=== PATIENT | female | born 1940 | race Two or more races ===

== ENCOUNTER 2019-03-18 22:21 | Inpatient (IN) | payer MEDICARE, OTHER ==
[~2019-03-18] VITALS: Ht 154.9 cm; Wt 48.5 kg
[~2019-03-18 22:21] MED LIST: DIABETIC MEDS; [UNRECOGNIZED DRUG - REMARK]
[2019-03-18] MEDS ORDERED: AMLO10TA7 PO (22:30)
[2019-03-18] MEDS ORDERED: PRAV80TA21 PO (22:30)
[2019-03-18] MEDS ORDERED: LISI-662 PO (22:32)
[2019-03-18] MEDS ORDERED: ASPI-1182 PO (22:32)
[2019-03-18] MEDS ORDERED: METO-558 PO (22:32)
[2019-03-18] MEDS ORDERED: METF-960 PO (22:32)
[2019-03-18 22:41] LABS: GLUCOSE,POINT OF CARE 139 MG/DL (70-110)
[2019-03-18 22:59] LABS: BASOPHILS % (AUTO) 0.1 % (0.0-2.0); HEMATOCRIT 41.8 % (36-46); HEMOGLOBIN 13.8 g/dL (12.0-16.0); LYMPHOCYTES # (AUTO) 2.2 K/uL (1.0-4.8); LYMPHOCYTES % (AUTO) 10.4 % (22.0-44.0); MEAN CORPUSCULAR HEMOGLOBIN 29.9 pg (26.0-34.0); MEAN CORPUSCULAR VOLUME 91 fL (80-100); MONOCYTES # (AUTO) 0.7 K/uL (0.1-1.0); MONOCYTES % (AUTO) 3.3 % (2.0-9.0); NEUTROPHILS # (AUTO) 18.2 K/uL (1.8-7.7); PLATELET COUNT (AUTO) 641 K/uL (150-450); RED CELL DISTRIBUTION WIDTH 14.6 % (11.5-14.5)
[2019-03-18 23:07] LABS: ANION GAP 11 mmol/L (8-16); CALCIUM, TOTAL 10.7 mg/dL (8.8-10.5); CARBON DIOXIDE 28 mmol/L (22-29); CHLORIDE 99 mmol/L (98-107); CREATININE 0.86 mg/dL (0.60-1.30); GLUCOSE,RANDOM 155 mg/dL (70-110); SODIUM SERUM 138 mmol/L (136-145); UREA NITROGEN, BLOOD 16 mg/dL (7-18)
[2019-03-18 23:11] LABS: GLOMERULAR FILTR. RATE CALC > 60 mL/min (>60)
[2019-03-18 23:13] LABS: ALANINE AMINOTRANSFERASE 29 U/L (12-78); ALBUMIN 3.2 g/dL (3.4-5.0); ALKALINE PHOSPHATASE 156 U/L (46-116); ASPARTATE AMINOTRANSFERASE 30 U/L (15-37); BILIRUBIN,TOTAL 0.8 mg/dL (0.1-1.0); LIPASE 84 U/L (73-393); TOTAL PROTEIN, SERUM 7.8 g/dL (6.4-8.2)
[2019-03-18 23:15] LABS: NEUTROPHILS % (AUTO) 85.2 % (40.0-70.0)
[2019-03-18] MEDS ORDERED: ONDANSETRON HCL 4 MG/2 ML VIAL IVP PRN (23:45)
[2019-03-18] MEDS ORDERED: 0.9% SODIUM CHLORIDE 10 ML SYRINGE IVP PRN (23:45)
[2019-03-18] MEDS ORDERED: ACETAMINOPHEN 325 MG TABLET PO PRN (23:45)
[2019-03-18] MEDS ORDERED: ONDANSETRON HCL 4 MG/2 ML VIAL IVP ONE (23:45)
[2019-03-18] MEDS ORDERED: HYDROmorphone 2 MG/ML SYRINGE IVP ONE (23:45)
[2019-03-18] MEDS ORDERED: SODIUM CHLORIDE 0.9% 1,000 ML IV ONE (23:45)
[2019-03-19] MEDS ORDERED: CefTRIAXone 1 GM/DEXTROSE 50 ML IV ONE (00:15)
[2019-03-19] MEDS ORDERED: 0.9% SODIUM CHLORIDE 10 ML SYRINGE IVP PRN (01:00)
[2019-03-19] MEDS ORDERED: ONDANSETRON HCL 4 MG/2 ML VIAL IVP PRN (01:00)
[2019-03-19] MEDS ORDERED: MORPHINE SULFATE 2 MG/ML SYRINGE IVP PRN ×2 (01:00→13:00)
[2019-03-19] MEDS ORDERED: DEXTROSE 50%-WATER 25 GM/50 ML SYRINGE IVP PRN (01:00)
[2019-03-19] MEDS ORDERED: INSULIN LISPRO 100 UNITS/ML SQ PRN (01:00)
[2019-03-19] MEDS ORDERED: VANCOMYCIN HCL 1.25 GM in DEXTROSE 5%-WATER 250 ML IV ONE (01:30)
[2019-03-19 03:40] VITALS: BP 142/72
[2019-03-19 07:02] LABS: GLUCOMETER DEV NAME(LOC) 5S.1; GLUCOSE,POINT OF CARE 213 MG/DL (70-110)
[2019-03-19 07:41] VITALS: BP 110/58
[2019-03-19] MEDS: PANTOPRAZOLE SODIUM 40 MG/VIAL IVP SCH (08:50)
[2019-03-19] MEDS: PIPERACILLIN/TAZO 3.375 GM/D5W 50 ML IV SCH ×3 (08:50→20:51)
[2019-03-19 10:18] LABS: BASOPHILS % (AUTO) 0.3 % (0.0-2.0); EOSINOPHILS % (AUTO) 0.3 % (1.0-6.0); HEMATOCRIT 36.1 % (36-46); HEMOGLOBIN 12.1 g/dL (12.0-16.0); LYMPHOCYTES # (AUTO) 2.2 K/uL (1.0-4.8); LYMPHOCYTES % (AUTO) 19.3 % (22.0-44.0); MEAN CORPUSCULAR HEMOGLOBIN 30.2 pg (26.0-34.0); MEAN CORPUSCULAR HGB CONC 33.6 G/dL (31.0-37.0); MEAN CORPUSCULAR VOLUME 90 fL (80-100); MONOCYTES # (AUTO) 0.4 K/uL (0.1-1.0); MONOCYTES % (AUTO) 3.3 % (2.0-9.0); NEUTROPHILS # (AUTO) 8.6 K/uL (1.8-7.7); NEUTROPHILS % (AUTO) 76.8 % (40.0-70.0); PLATELET COUNT (AUTO) 580 K/uL (150-450); RED BLOOD CELL COUNT(AUTO) 4.02 MIL/uL (4.00-5.20); RED CELL DISTRIBUTION WIDTH 14.5 % (11.5-14.5)
[2019-03-19 10:26] LABS: CREATININE 0.93 mg/dL (0.60-1.30); POTASSIUM 4.4 mmol/L (3.5-5.1)
[2019-03-19 10:27] LABS: CALCIUM, TOTAL 9.8 mg/dL (8.8-10.5)
[2019-03-19] MEDS ORDERED: AMLO2.5T29 PO (11:19)
[2019-03-19] MEDS ORDERED: INSREG SQ (11:28)
[2019-03-19] MEDS ORDERED: INSNPH SQ (11:28)
[2019-03-19] MEDS ORDERED: METO50 PO (11:28)
[2019-03-19 11:40] VITALS: BP 116/60
[2019-03-19 13:26] LABS: GLUCOMETER DEV NAME(LOC) 5S.1; GLUCOSE,POINT OF CARE 95 MG/DL (70-110)
[2019-03-19 13:50] LABS: GLUCOSE, URINE (UA) NEGATIVE (NEGATIVE); KETONES,URINE TRACE mg/dL (NEGATIVE); LEUKOCYTE ESTERASE ,URINE NEGATIVE (NEGATIVE); NITRATE,URINE NEGATIVE (NEGATIVE); OCCULT BLOOD,URINE NEGATIVE (NEGATIVE); PROTEIN,URINE POS 1+ (NEGATIVE); UROBILINOGEN,URINE 0.2 mg/dL (<=1.0)
[2019-03-19 14:00] LABS: BILIRUBIN,URINE PRELIM. POSITIVE (NEGATIVE)
[2019-03-19 14:02] LABS: APPEARANCE,URINE SLIGHTLY CLOUDY (CLEAR)
[2019-03-19 14:03] LABS: BACTERIA,URINE None Seen /HPF (None Seen); RBC,URINE 0-2 /HPF (0-2); SQUAMOUS EPITHELIAL CELL,UR Many /LPF (None Seen); WBC,URINE 0-2 /HPF (0-5)
[2019-03-19 15:25] VITALS: BP 122/55
[2019-03-19] MEDS ORDERED: VANCOMYCIN HCL 500 MG in DEXTROSE 5%-WATER 100 ML IV SCH (19:00)
[2019-03-19 19:33] VITALS: BP 128/48
[2019-03-19] MEDS ORDERED: PNEUMOCOCCAL VACCINE POLYVALENT 0.5 ML VIAL [PPSV23] IM ONE (20:15)
[2019-03-19 23:46] VITALS: BP 142/58
[2019-03-20] MEDS: PIPERACILLIN/TAZO 3.375 GM/D5W 50 ML IV SCH ×2 (02:45→09:05)
[2019-03-20 04:29] VITALS: BP 133/50
[2019-03-20 07:56] VITALS: BP 144/62
[2019-03-20] MEDS ORDERED: ASPIRIN 81 MG CHEWABLE TABLET PO SCH (09:00)
[2019-03-20] MEDS: PANTOPRAZOLE SODIUM 40 MG/VIAL IVP SCH (09:05)
[2019-03-20 11:05] VITALS: BP 147/67
[2019-03-20 11:51] LABS: GLUCOMETER DEV NAME(LOC) 5S.1; GLUCOSE,POINT OF CARE 98 MG/DL (70-110)
[2019-03-20 11:52] LABS: GLUCOMETER DEV NAME(LOC) 5S.1; GLUCOSE,POINT OF CARE 89 MG/DL (70-110)
[2019-03-20 11:52] LABS: GLUCOMETER DEV NAME(LOC) 5S.1; GLUCOSE,POINT OF CARE 124 MG/DL (70-110)
[2019-03-20] MEDS ORDERED: METR500 PO (12:14)
[2019-03-20] MEDS ORDERED: CIPR-278 PO (12:14)
[2019-03-20] MEDS ORDERED: PIPERACILLIN SODIUM/TAZOBACTAM 2.25 GM in DEXTROSE 5%-WATER 50 ML IV SCH (15:00)
[2019-03-21] MEDS ORDERED: LISI-662 PO (16:31)
== END 2019-03-20 14:10 | disposition home or self-care (01) | DRG 392 ==
LOC: EMS 22:23 → 5N 03-19 01:35
PROVIDERS: ADMIT Internal Medicine; ATTEND Internal Medicine
DX: K52.9 Noninfective gastroenteritis and colitis, unspecified (principal); E11.9 Type 2 diabetes mellitus without complications; I25.10 Atherosclerotic heart disease of native coronary artery without angina pectoris; Z89.612 Acquired absence of left leg above knee; I10 Essential (primary) hypertension; Z89.512 Acquired absence of left leg below knee; Z90.710 Acquired absence of both cervix and uterus; Z95.1 Presence of aortocoronary bypass graft; Z79.899 Other long term (current) drug therapy
CPT/HCPCS: 74176; 76700; 83605; 87040; 93005; 97162; 97530; C9113; J1170; J2405; J2543; J3370; J7060

== ENCOUNTER 2019-03-21 15:33 | Emergency (ER) | payer MEDICARE, OTHER ==
[~2019-03-21] VITALS: Ht 154.9 cm; Wt 48.5 kg
[~2019-03-21 15:33] MED LIST changes: +AMLO10TA7 PO; +ASPI-1182 PO; +CIPR-278 PO; -DIABETIC MEDS; +INSNPH SQ; +INSREG SQ; +LISI-662 PO; +METF-960 PO; +METO50 PO; +METR500 PO; +PRAV80TA21 PO; -[UNRECOGNIZED DRUG - REMARK]
[2019-03-21 16:19] LABS: GLUCOSE,POINT OF CARE 104 MG/DL (70-110)
[2019-03-21] MEDS ORDERED: DiphenhydrAMINE HCL 25 MG CAPSULE PO ONE (16:30)
[2019-03-21] MEDS ORDERED: FAMOTIDINE 20 MG TABLET PO ONE (16:30)
[2019-03-21] MEDS ORDERED: LISI-662 PO (16:31)
[2019-03-21 18:05] VITALS: BP 140/80
== END 2019-03-21 18:06 | disposition home or self-care (01) ==
LOC: EMS 15:35
DX: R51 Headache (principal); R20.2 Paresthesia of skin; T37.3X5A Adverse effect of other antiprotozoal drugs, initial encounter; E11.9 Type 2 diabetes mellitus without complications; I11.9 Hypertensive heart disease without heart failure; Z86.73 Personal history of transient ischemic attack (TIA), and cerebral infarction without residual deficits; Z79.4 Long term (current) use of insulin; Z79.82 Long term (current) use of aspirin; Z79.84 Long term (current) use of oral hypoglycemic drugs; Z79.899 Other long term (current) drug therapy; Y92.89 Other specified places as the place of occurrence of the external cause

== ENCOUNTER 2025-04-12 15:18 | Emergency (ER) | payer MEDICARE, OTHER ==
[~2025-04-12] VITALS: Ht 154.9 cm; Wt 49.0 kg
[~2025-04-12 15:18] MED LIST changes: +AMLO-258 PO; -AMLO10TA7 PO; -ASPI-1182 PO; +ASPI-1444 PO; -LISI-662 PO; +LISI-894 PO; +METF-1211 PO; -METF-960 PO; -PRAV80TA21 PO; +PRAV80TA75 PO
[2025-04-12 15:25] VITALS: BP 137/92; PULSE 82; RESP 18; TEMP 98.6; O2SAT 98
== END 2025-04-12 18:21 | disposition left against medical advice (07) ==
LOC: EMS 15:18
DX: M79.602 Pain in left arm (principal); Z53.21 Procedure and treatment not carried out due to patient leaving prior to being seen by health care provider
CPT/HCPCS: 99281; Z7502